=== PATIENT | male | born 1960 | race Caucasian/White ===

== ENCOUNTER 2021-06-25 19:25 | Emergency (ER) | payer OTHER ==
[~2021-06-25 19:25] MED LIST: ECOTRIN81 MG PO; GLUCOPHAGE1000 MG PO; PRINIVIL10 MG PO
[2021-06-25 21:49] LABS: HEMOGLOBIN 16.4 gm/dl (14.0-17.5); RED BLOOD COUNT 5.56 M/UL (4.20-5.50)
[2021-06-25 22:13] LABS: BUN/CREATININE RATIO 15 (0-10)
== END 2021-06-25 22:30 | disposition home or self-care (01) ==
LOC: ER1 19:25
PROVIDERS: Physician Assistant Medical
DX: M79.662 Pain in left lower leg (principal); I25.2 Old myocardial infarction; E11.9 Type 2 diabetes mellitus without complications; I10 Essential (primary) hypertension; Z86.73 Personal history of transient ischemic attack (TIA), and cerebral infarction without residual deficits; Z79.82 Long term (current) use of aspirin; Z79.02 Long term (current) use of antithrombotics/antiplatelets; Z96.641 Presence of right artificial hip joint
CPT/HCPCS: 80053; 85025; 85379; 85610; 99283; J2270